=== PATIENT | male | born 1955 | race Caucasian/White ===

== ENCOUNTER → 2023-06-12 13:04 | Outpatient (CLI) | payer MEDICARE, SELFPAY ==
--- NOTE | 2023-06-12 13:06 | DI.CT.S_ITS ---
PROCEDURE: CT CHEST W CON INDICATIONS: nodule seen on CXR 05/23/23 TECHNIQUE: After the administration of intravenous contrast, 5 mm thick sections acquired from the pulmonary apices to the posterior costophrenic angles. 1 mm axial lung, 5 mm thick coronal and sagittal reformats and 7 mm axial MIP were acquired. For radiation dose reduction, the following was used: automated exposure control, adjustment of mA and/or kV according to patient size. COMPARISON: [facility] ([facility]), CR, XR CHEST 2V, 05/23/2023, 11:59. FINDINGS: Image quality: Excellent. Lungs and pleura: No acute air space opacities. No pleural effusions or pneumothorax. Central and peripheral airways are patent and normal in caliber. Lingula calcified granuloma. Trace tree-in-bud nodules in the right lung base. Pleural parenchymal bands in the left lung base. Juxtapleural nodules along the right minor fissure, favoring benign intrapulmonary lymph nodes. Mediastinum: Heart size is normal. No pericardial effusion. No mediastinal or hilar adenopathy by size criteria. Thoracic aorta and central pulmonary arteries are normal in size. Esophagus is normal in caliber. No hiatal hernia. Bones and chest wall: No suspicious bony lesions. No vertebral body compression fractures. No axillary or supraclavicular adenopathy by size criteria. Thyroid gland is unremarkable . Abdomen: Visualized upper abdominal solid organs appear normal. Upper abdominal bowel loops are normal in caliber. IMPRESSION: No nodular density in the right lower lung zone to correspond with chest x-ray. Trace tree-in-bud nodules within the right lower lobe, presumably a sequela of recent infectious or inflammatory bronchiolitis. Sequela of prior granulomatous disease. Dictated by: Lobo Castillo M.D. on 06/13/2023 at 8:30 Approved by: Lobo Castillo M.D. on 06/13/2023 at 8:34
[2023-06-12 14:35] LABS: Add Manual Diff / Slide Review NO; Basophils Absolute Auto 100 /uL (0-100); Eosinophils Absolute Auto 100 /uL (0-450); Hematocrit 42.6 % (41-53); Hemoglobin 14.5 g/dL (13.5-17.5); Lymphocytes Absolute Auto 2200 /uL (1100-4500); Lymphocytes Percent Auto 32.1 % (25-40); Mean Corpuscular HGB Conc 34.1 % (30-36); Mean Corpuscular Hemoglobin 31.2 PG (26-34); Mean Corpuscular Volume 91.6 fL (80-100); Monocytes Absolute Auto 600 /uL (0-900); Monocytes Percent Auto 8.1 % (3-14); Neutrophils Absolute Auto 3900 /uL (1500-7000); Neutrophils Percent Auto 56.8 % (50-75); Platelet Count 261 X10^3/uL (150-400); Red Blood Cell Count 4.65 X10^6/uL (4.5-5.9); Red Cell Distribution Width 14.3 % (11.6-14.8); White Blood Cell Count 6.9 X10^3/uL (4.5-11.0)
[2023-06-12 14:58] LABS: Alanine Aminotransferase 31 IU/L (<50); Albumin 4.2 g/dL (3.5-5.0); Albumin Globulin Ratio 1.4 (1.0-2.8); Alkaline Phosphatase 60 U/L (38-126); Aspartate Aminotransferase 30 IU/L (17-59); BUN Creatinine Ratio 16.8 (6-22); Bilirubin Total 0.5 mg/dL (0.2-1.3); Blood Urea Nitrogen 18 mg/dL (9-20); Calcium 8.9 mg/dL (8.4-10.2); Carbon Dioxide 25 mmol/L (22-32); Chloride 106 mmol/L (98-107); Cholesterol 251 mg/dL (140-199); Estimated Glomerular Filt Rate > 60 mL/min (>60); Glucose 114 mg/dL (80-110); HDL Cholesterol 49 mg/dL (40-60); HEMOLYSIS 25 (0-50); LDL Cholesterol Calculated 166 mg/dL (<100); Sodium 138 mmol/L (137-145); Total Protein 7.2 g/dL (6.3-8.2); Triglycerides 182 mg/dL (35-150)
[2023-06-12 15:25] LABS: Thyroid Stimulating Hormone 4.02 uIU/mL (0.47-4.68)
== END ==
PROVIDERS: Family Medicine; PCP Family Medicine; Referring Provider Physician Assistant; Visit Provider Physician Assistant
DX: R91.1 Solitary pulmonary nodule (principal); R05.9 Cough, unspecified; E03.8 Other specified hypothyroidism; Z12.5 Encounter for screening for malignant neoplasm of prostate; E06.3 Autoimmune thyroiditis; E78.5 Hyperlipidemia, unspecified; R03.0 Elevated blood-pressure reading, without diagnosis of hypertension
CPT/HCPCS: 36415; 71260; 80053; 80061; 84443; 85025; G0103; Q9967

== ENCOUNTER → 2023-09-12 10:44 | Outpatient (CLI) | payer MEDICARE, SELFPAY ==
--- NOTE | 2023-09-12 10:45 | DI.CT.S_ITS ---
PROCEDURE: CT CHEST W CON INDICATIONS: f/u 06/12/[address] Park TECHNIQUE: After the administration of intravenous contrast, 5 mm thick sections acquired from the pulmonary apices to the posterior costophrenic angles. 1 mm axial lung, 5 mm thick coronal and sagittal reformats and 7 mm axial MIP were acquired. For radiation dose reduction, the following was used: automated exposure control, adjustment of mA and/or kV according to patient size. COMPARISON: [facility], CT, CT CHEST W CON, 06/12/2023, 15:14. FINDINGS: Image quality: Diagnostic. Lungs and pleura: Compared to CT chest dated June 12, 2023, no new or enlarging solid pulmonary nodules. Stable right fissure solid pulmonary nodules versus lymph nodes measuring 2 mm (3/162, 164, 161). Stable right lower lobe subpleural solid pulmonary nodule measuring 3 mm (3/219). A few solid pulmonary nodules in the left upper lobe measuring 2-3 mm which are stable (3/130). Stable left lower lobe solid pulmonary nodule measuring 4 mm (3/234). Scattered calcified granulomas. Linear atelectasis/scar in the bilateral lower lobes. Previously described right lower lobe centrilobular nodules are no longer seen. No acute air space opacities. No pleural effusions or pneumothorax. Central and peripheral airways are patent and normal in caliber. Mediastinum: Heart size is normal. No pericardial effusion. No mediastinal or hilar adenopathy by size criteria. Thoracic aorta and central pulmonary arteries are normal in size. No filling defects in the central pulmonary vasculature. Esophagus is normal in caliber. No hiatal hernia. Bones and chest wall: No suspicious bony lesions. No vertebral body compression fractures. Mild multilevel degenerative changes of the spine. No axillary or supraclavicular adenopathy by size criteria. No thyroid nodules which require sonographic follow up, per consensus guidelines. Upper Abdomen: Visualized upper abdominal solid organs appear normal. Upper abdominal bowel loops are normal in caliber. IMPRESSION: 1. Compared to CT chest dated June 12, 2023, no new or enlarging solid pulmonary nodules or consolidation. Scattered solid pulmonary nodules measuring up to 4 mm which are stable. -Fleischner guidelines: If patient is low risk, no additional follow-up needed. If patient is high risk, consider repeat CT chest in 12 months. 2. Previously described right lower lobe centrilobular nodules are no longer seen suggestive of transient infection or inflammation. 3. Sequela of prior granulomatous infection. Dictated by: Apolinar Conway M.D. on 09/12/2023 at 18:09 Approved by: Apolinar Conway M.D. on 09/12/2023 at 18:20
[2023-09-12 11:13] LABS: Estimated Glomerular Filt Rate > 60 mL/min (>60)
== END ==
PROVIDERS: Radiology Diagnostic Radiology; PCP Family Medicine; Referring Provider Physician Assistant; Visit Provider Physician Assistant
DX: G93.31 Postviral fatigue syndrome (principal); R91.8 Other nonspecific abnormal finding of lung field; Z87.01 Personal history of pneumonia (recurrent)
CPT/HCPCS: 36415; 71260; 82565; Q9967